=== PATIENT | female | born 1985 | race Caucasian/White ===

== ENCOUNTER 2020-04-01 08:00 | Inpatient (IN) | payer OTHER ==
[2020-04-02] MEDS ORDERED: CITRIC ACID/SODIUM CITRATE 30 ML UNIT-DOSE CUP PO ONE (14:32)
[2020-04-02] MEDS ORDERED: ELECTROLYTE-148 SOLN 500 ML IV ONE (14:32)
--- NOTE | 2020-04-02 14:37 | HP ---
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: Alzheimer's, CVA, Dementia, Migraine, Multiple Sclerosis, Peripheral Neuropathy, Parkinson's, Seizure, Syncope, TIA, Vertigo, Other Cardiovascular: No: AFIB, Aneurysm, Aortic Insufficiency, Aortic Stenosis, CAD, CHF, Deep Vein Thrombosis, HTN, Hyperlipdemia, CT, Mitral Insufficiency, Mitral Stenosis, Murmur, Pulmonary Hypertension, Other Pulmonary: No: Asthma, Bronchitis, Cancer, COPD, O2 Dependent, Pneumonia, Previously Intubated, Pulmonary Embolus, Pulmonary Fibrosis, Sleep Apnea, Other Gastrointestinal: No: Ascites, Cancer, Constipation, Crohn's Disease, Diverticulitis, Diverticulosis, Esophageal Varices, Gastritis, GERD, GI Bleed, Hemorrhoids, Hiatal Hernia, Inflamatory Bowel Disease, Irritable Bowel Disease, Pancreatitis, Peptic Ulcer Disease, Ulcerative Colitis, Other Hepatobiliary: No: Cirrhosis, Cholelithiasis, Cholecystitis, Choledocholithiasis, Hepatitis A, Hepatitis B, Hepatitis C, Other Renal/: No: Renal Failure, Renal Inusuff, BPH, Cancer, Hematuria, Hemodialysis, Neurogenic Bladder, Renal Calculi, UTI, Other Reproductive: No: Ectopic , Endometriosis, Fibroids, PID, Polycystic Ovary Syndrome, Postmenopausal, Other Heme/Onc: No: Anemia, B12 Deficiency, Bleeding Disorder, Cancer, Current Chemotherapy, Current Radiation Therapy, Hemochromatosis, Hypercoaguable State, Myeloproliferative Synd, Sickle Cell Disease, Sickle Cell Trait, Thrombocytopenia, Other Infectious Disease: No: AIDS, C-Diff, Herpes Zoster, HIV, MRSA, STD's, Tuberculosis, VREF, Other Psych: No: Addictions, Anxiety, Bipolar, Depression, Panic, Psychosis, Schizophrenia, Other Musculoskeletal: No: Bursitis, Chronic low back pain, Hemiparesis, Hemiplegia, Osteoarthritis, Paraplegia, Other Rheumatology: No: Fibromyalgia, Gout, Lupus, Rheumatoid Arthritis, Sarcoidosis, Vasculitis, Other ENT: No: Allergic Rhinitis, Sinusitis, Other Endocrine: No: [place]'s Disease, [place]'s Disease, Diabetes Insipidus, Diabetes Mellitus, Hyperparathyroidism, Hyperthyroidism, Hypothyroidism, Osteopenia, SIADH, Other Dermatology: No: Basal Cell, Cellulitis, Eczema, Melanoma, Psoriasis, Squamous Cell, Other - Past Surgical History Past Surgical History: Yes: Hx Myomectomy: No Hx Transabdominal Cerclage: No - Advance Directives Advance Directives: Yes: Living Will - Smoking History Smoking history: Never smoked - Alcohol/Substance Use Hx Alcohol Use: No History of Substance Use: reports: None - Social History Usual Living Arrangement: Yes: With Significant Other Do you think of yourself as: Straight/Heterosexual ADL: Independent History of Recent Travel: No Family Medical History Family History: Denies Review of Systems - Review of Systems Constitutional: reports: No Symptoms Eyes: reports: No Symptoms HENT: reports: No Symptoms Neck: reports: No Symptoms Cardiovascular: reports: No Symptoms Respiratory: reports: No Symptoms Gastrointestinal: reports: No Symptoms Genitourinary: reports: No Symptoms Breasts: reports: No Symptoms Reported Musculoskeletal: reports: No Symptoms Integumentary: reports: No Symptoms Neurological: reports: No Symptoms Endocrine: reports: No Symptoms Hematology/Lymphatic: reports: No Symptoms Psychiatric: reports: No Symptoms Physical Exam - Maternity Constitutional: Yes: Well Nourished, No Distress, Calm Eyes: Yes: WNL, Conjunctiva Clear, EOM Intact HENT: Yes: WNL, Atraumatic, Normocephalic Neck: Yes: WNL, Supple, Trachea Midline Cardiovascular: Yes: WNL, Regular Rate and Rhythm Lungs: Clear to auscultation Breast(s): Yes: WNL - Abdominal Exam/OB Number of Fetuses: Single Presentation: Vertex Contractions: Yes Regularity: Irregular Intensity: Mild Monitor Mode: External Heart Rate Location: [facility] Category: I Accelerations: Uniform Decelerations: None - Vaginal Exam/OB Vaginal Bleeding: No Speculum Exam: No Dilatation (cm): 1 Effacement (%): 50 Presentation: Vertex/Position Station: -2 - Physical Exam Musculoskeletal: Yes: WNL Extremities: Yes: WNL Edema: Yes Edema: LUE: 1+, RUE: 1+, LLE: 1+, RLE: 1+ Integumentary: Yes: WNL Deep Tendon Reflex Grade: Normal +2 ...Motor Strength: WNL Psychiatric: Yes: WNL, Alert, Oriented Hemorrhage Risk Assessment - Risk Factors Medium Risk Factors: Yes: Prior , uterine surgery,or multiple laparotomies High Risk Factors: Yes: None Risk Score: 1 Risk Level: Medium Risk Assessment/Plan for rpeeat lt c s
[2020-04-02] MEDS ORDERED: morphine SULFATE/PF 0.5 MG/ML (2cc Syringe - QUVA) ONE (14:54)
[2020-04-02] MEDS ORDERED: ceFAZolin SODIUM 1 GM VIAL ONE (14:55)
[2020-04-02] MEDS ORDERED: KETOROLAC TROMETHAMINE 30 MG/1 ML VIAL ONE (14:55)
[2020-04-02] MEDS ORDERED: OXYTOCIN 10 UNITS/ML VIAL ONE (14:55)
[2020-04-02] MEDS ORDERED: ELECTROLYTE-148 SOLN 1,000 ML IV SCH (15:01)
[2020-04-02 15:55] VITALS: BMI 33.6
[2020-04-02] MEDS ORDERED: OXYTOCIN 20 UNITS in 0.9% NS 20 UNIT/1,000 ML INFUS.BAG IV ONE (16:35)
[2020-04-02] MEDS ORDERED: ONDANSETRON 4 MG/2 ML VIAL IVPUSH PRN (16:56)
[2020-04-02] MEDS ORDERED: ACETAMINOPHEN 1000 MG/100 ML VIAL (NON FORMULARY) IVPB ONE (16:57)
[2020-04-02] MEDS ORDERED: METHYLERGONOVINE MALEATE 0.2 MG/1 ML AMP IM PRN (17:34)
[2020-04-02] MEDS ORDERED: oxyCODONE HCL 5 MG TABLET PO PRN ×2 (17:34)
[2020-04-02] MEDS ORDERED: IBUPROFEN 800 MG/8 ML IJ IVPB PRN (17:34)
--- NOTE | 2020-04-02 17:34 | OP ---
Operative Note - Note: Operative Date: 04/02/20 Pre-Operative Diagnosis: repeat lt c s Operation: repeat lt c s Findings: no adhesion Post-Operative Diagnosis: Same as Pre-op Surgeon: Juancho Ponce Occupational Ther: Joseph Gruber Anesthesiologist/COSMETIC COUNSELOR: Jorden Roque Anesthesia: Spinal Estimated Blood Loss (mls): 600 Operative Report Dictated: Yes
[2020-04-02] MEDS ORDERED: OXYTOCIN 20 UNITS in 0.9% NS 20 UNIT/1,000 ML INFUS.BAG IV SCH (17:45)
--- NOTE | 2020-04-02 18:02 | OP ---
DATE OF OPERATION: 04/02/2020 PREOPERATIVE DIAGNOSIS: Repeat low transverse section. POSTOPERATIVE DIAGNOSIS: Repeat low transverse section. Cord around the neck x1. PROCEDURE: Repeat low transverse section. SURGEON: Juancho Ponce MD. ELECTRIC SYSTEM OPERATOR: KAREN Laureano. ANESTHESIA: Spinal ANESTHESIOLOGIST: Wesley Roque MD. INDICATION: A 34-year-old female patient with a history of low transverse section 39 weeks and 3 days , chronic hepatitis B carrier for all her life. Patient is being seen by GI doctor and I think confirmed to be positive in January; however, her viral load is very low, so that is why probably are repeated tests for hepatitis B surface antigen was negative. However, she was positive in 2014 too, and in January of this year, her GI doctor, Dr. Morales tested her and has been positive, and she is not on any medication for treatment. So again, patient has been educated. Patient knows that baby needed to have a hepatitis B vaccine and immunoglobulin. So patient understood, so patient taken to OR for repeat low transverse section. DESCRIPTION OF PROCEDURE: Patient was placed on operating table in supine position after spinal anesthesia was obtained. The patient's abdomen and pelvis were prepped and draped in the usual sterile manner. Pfannenstiel incision was made. The incision was made through skin, subcutaneous tissue, until the fascia was nicked in the midline. The fascia was extended bilaterally. Intraperitoneal cavity was entered, bladder flap was created. Low transverse section of uterus was entered, baby delivered from RACHAEL position. Cord around the neck x1. Baby was handed over to the president commercial [employer] after umbilical cord was doubly clamped and cut. Placenta was removed. Uterus was closed in single layer, first interlocking Vicryl suture, good hemostasis, and both gutters clean. Both ovaries, fallopian tubes, uterus were within normal limits, no complications. Tolerated procedure well. Draining clear urine. Blood loss about 600 mL. Peritoneum was closed. Fascia was closed. Skin was closed. Transferred to recovery room in stable condition draining clear urine. MD SHRUTHI ELAINE/[id number]
[2020-04-02] MEDS ORDERED: ACETAMINOPHEN INJECTION 100 ML IVPB ONE (18:24)
[2020-04-02] MEDS ORDERED: SENNOSIDES/DOCUSATE COMBO (SENNA PLUS) TABLET (UD) PO PRN (22:00)
--- NOTE | 2020-04-03 08:11 | PN ---
Progress Note (short form) - Note Progress Note: Anesthesia Post op/Pain Pt seen and examined S:Alert and awake, mild discomfort O: Vital Signs Temperature 98.2 F 04/03/20 02:00 Pulse Rate 75 04/03/20 02:00 Respiratory Rate 20 04/03/20 06:07 Blood Pressure 102/63 04/03/20 02:00 O2 Sat by Pulse Oximetry (%) 98 04/03/20 02:00 A/P: s/p c section Doing well post op PO pain meds as needed Continue current care Celso Cole MD
[2020-04-03 09:56] LABS: BASO % 0.3 % (0-2.0); EOS % 0.9 % (0-4.5); HEMATOCRIT 29.4 % (32.4-45.2); HEMOGLOBIN 9.9 GM/dL (10.7-15.3); LYMPH % 10.1 % (8-40); MCH 29.5 pg (25.7-33.7); MCHC 33.6 g/dl (32.0-36.0); MEAN CELL VOLUME 87.8 fl (80-96); NEUT % 82.7 % (42.8-82.8); PLATELET COUNT 210 K/MM3 (134-434); RBC 3.34 M/mm3 (3.60-5.2); RDW 13.3 % (11.6-15.6); WHITE BLOOD COUNT 10.6 K/mm3 (4.0-10.0)
[2020-04-03] MEDS ORDERED: DIPHTH,PERTUSS(ACELL),TET 0.5 ML DISP.SYRIN IM ONE (10:00)
[2020-04-03] MEDS: PRENATAL VITAMINS W/ FOLIC ACID TABLET (FP) PO SCH (10:17)
--- NOTE | 2020-04-03 15:23 | PN ---
Post Progress Note Post Day: 1 Type of Delivery: Repeat C/S Vital Signs: Vital Signs Temperature 97.8 F 04/03/20 09:05 Pulse Rate 86 04/03/20 09:05 Respiratory Rate 20 04/03/20 15:00 Blood Pressure 112/58 L 04/03/20 09:05 O2 Sat by Pulse Oximetry (%) 97 04/03/20 09:05 Breast Exam: Yes: Soft Uterus: Yes: Fundus Firm, Fundus below umbilicus Incision: Yes: Dressing dry and intact, Sutures intact Abdomen/GI: Yes: Abdomen soft, Passing flatus, Tolerating PO Lochia: Yes: Serosa Lochia, amount: Small Extremities: Yes: Calves non-tender Perineum: Yes: Intact Activity: Ambulating (doing well, dc pt home tomorrow ) - Labs Labs: CBC WBC 10.6 K/mm3 (4.0-10.0) H 04/03/20 08:20 RBC 3.34 M/mm3 (3.60-5.2) L 04/03/20 08:20 Hgb 9.9 GM/dL (10.7-15.3) L 04/03/20 08:20 Hct 29.4 % (32.4-45.2) L D 04/03/20 08:20 MCV 87.8 fl (80-96) 04/03/20 08:20 MCH 29.5 pg (25.7-33.7) 04/03/20 08:20 MCHC 33.6 g/dl (32.0-36.0) 04/03/20 08:20 RDW 13.3 % (11.6-15.6) 04/03/20 08:20 Plt Count 210 K/MM3 (134-434) 04/03/20 08:20 MPV 9.0 fl (7.5-11.1) 04/03/20 08:20 Absolute Neuts (auto) 8.8 K/mm3 (1.5-8.0) H 04/03/20 08:20 Neutrophils % 82.7 % (42.8-82.8) 04/03/20 08:20 Lymphocytes % 10.1 % (8-40) D 04/03/20 08:20 Monocytes % 6.0 % (3.8-10.2) 04/03/20 08:20 Eosinophils % 0.9 % (0-4.5) 04/03/20 08:20 Basophils % 0.3 % (0-2.0) 04/03/20 08:20 Nucleated RBC % 0 % (0-0) 04/03/20 08:20
--- NOTE | 2020-04-03 15:27 | DS ---
Physical Exam-HISTOLOGY SPECIALIST Vital Signs: Vital Signs Temperature 97.8 F 04/03/20 09:05 Pulse Rate 86 04/03/20 09:05 Respiratory Rate 20 04/03/20 15:00 Blood Pressure 112/58 L 04/03/20 09:05 O2 Sat by Pulse Oximetry (%) 97 04/03/20 09:05 Constitutional: Yes: Well Nourished, No Distress, Calm Eyes: Yes: WNL, Conjunctiva Clear, EOM Intact HENT: Yes: WNL, Atraumatic, Normocephalic Neck: Yes: WNL, Supple, Trachea Midline Cardiovascular: Yes: WNL, Regular Rate and Rhythm Respiratory: Yes: WNL, Regular, CTA Bilaterally Gastrointestinal: Yes: WNL, Normal Bowel Sounds, Soft ...Rectal Exam: Yes: WNL Renal/: Yes: WNL Pelvis: Yes: WNL External Genitalia: Yes: Normal Internal Exam Deferred: Yes Vaginal Exam: Yes: Normal Cervix: Yes: Normal Uterus: Yes: Normal Adnexa: Normal: Bilateral ....Post : Yes: Uterus firm, Uterus non-tender Breast(s): Yes: WNL Musculoskeletal: Yes: WNL Extremities: Yes: WNL Edema: Yes Edema: LUE: 1+, RUE: 1+, LLE: 1+, RLE: 1+ Integumentary: Yes: WNL Wound/Incision: Yes: Clean/Dry, Well Approximated Neurological: Yes: WNL, Alert, Oriented ...Motor Strength: WNL Psychiatric: Yes: WNL, Alert, Oriented Labs: CBC, BMP 04/03/20 08:20 Delivery - Delivery Section: Repeat Type of Anesthesia: Spinal Episiotomy/Laceration: None EBL (cc): 600 Delivery, Single - Stages of Labor Date of Delivery: 04/02/20 Time of Delivery: 15:58 Time Placenta Delivered: 15:59 - Condition of Infant Olive Pitter/Evaluator Present: Yes Name: Karely Ram Gender: Female Weight: 3.09 kg Position: Left, OA Total Hours ROM (Hrs/Mins): 2mins - 1 Minute Total Score: 9 5 Minutes Total Score: 9 - [place] Feeding Plan Initial Plan: Exclusive throughout hospitalization Discharge Summary Problems reviewed: Yes Reason For Visit: Procedures: Principal: repeat lt cs Other Procedures: none Hospital Course: uneventful Health Concerns: none Condition: Good - Instructions Diet, Activity, Other Instructions: Physical activity Resume your normal everyday activity as tolerated no heavy lifting or exercise until seen by your surgeon. You may walk unlimited chad of and climb stairs. You may resume driving the car when you feel safe and comfortable behind the wheel. No sexual activity as instructed. Wound care If you have a bandage, leave it on, and keep dry for 48-72 hours. After that brianne e discard the outer bandage. If they are tapes on the skin under the out of bandage leave them in place. They will peel off in the next 7 to 10 days. Do Not Peel them off. You may shower the day after surgery. If there are tapes present on the skin, you may shower over them. Diet There are no dietary restrictions. Eat healthy, high-fiber foods. Drink 6 to 8 glasses of liquid each day. This will assist in keeping your bowels are regular. Pain management You may take Tylenol or acetaminophen or Ibuprofen (for example, Motrin, Advil etc.) from my pain prescription medication is ordered should be taken as prescribed for moderate to severe pain. Call MD for any of the following: call dr aguirre for 2 weeks appointment Severe pain not relieved by medication Fever of 101 or higher Excessive bleeding or drainage on dressing Inability to urinate Disposition: HOME - Home Medications Comprehensive Discharge Medication List: Ambulatory Orders Pnv No.95/Ferrous Fum/Folic AC [ Vitamin Tablet] 1 each PO DAILY 04/02/20 Ibuprofen 600 mg PO Q6H PRN #30 tablet 04/03/20 Prescription Drug Monitoring Program (I-STOP) results: I-STOP reviewed and no issues identified
[2020-04-03 15:52] VITALS: TEMP 98.2
[2020-04-03] MEDS: ACETAMINOPHEN 325 MG TABLET (FP) PO PRN ×2 (17:06→21:28)
[2020-04-03] MEDS: SIMETHICONE 80 MG TAB.CHEW (FP) PO PRN ×2 (17:07→21:29)
[2020-04-03] MEDS: IBUPROFEN 600 MG TABLET (FP) PO PRN ×2 (17:07→21:28)
[2020-04-03] MEDS ORDERED: BISACODYL 10 MG SUPP.RECT RC PRN (17:34)
[2020-04-03 20:46] VITALS: BP 98/66
[2020-04-04] MEDS: IBUPROFEN 600 MG TABLET (FP) PO PRN ×2 (07:50→14:02)
[2020-04-04] MEDS: ACETAMINOPHEN 325 MG TABLET (FP) PO PRN ×2 (07:51→14:01)
[2020-04-04] MEDS: SIMETHICONE 80 MG TAB.CHEW (FP) PO PRN (07:51)
[2020-04-04 09:29] VITALS: PULSE 90
[2020-04-04] MEDS: PRENATAL VITAMINS W/ FOLIC ACID TABLET (FP) PO SCH (10:41)
[2020-04-06 05:07] LABS: HBsAG CONFIRMATION Positive (.)
--- NOTE | 2020-04-07 14:22 | PATH ---
Surgical Pathology Report Patient Name: ARIEL RESTREPO Med. Rec. #: [id number] /Age/Gender: 1985 (Age: 34) / F Account: [id number] Location: [facility] OBS/MIS DIRECTOR Taken: 04/02/2020 Received: 04/05/2020 Reported: 04/07/2020 Physicians: Juancho Ponce MD Specimen(s) Received PLACENTA Clinical History , 39.4 week, history of hepatitis B surface antigen positive-2014, non-reactive 10/01/19, redrawn 04/02/20 Previous x1 2014 Final Diagnosis PLACENTA, SECTION: 313 G THIRD TRIMESTER PLACENTA WITH TRIVASCULAR UMBILICAL CORD AND UNREMARKABLE PLACENTAL MEMBRANES. Electronically Signed [place] Castellano M.D. Gross Description The specimen is received fresh labeled placenta and is a 313 gram, 17.0 x 13.5 x 2.7 cm. placenta with attached membranes and umbilical cord. The attached membranes are whitten, translucent with focal opacities and insert marginally. The umbilical cord measures 26 cm. in length and averages 1 cm. in diameter. The cord inserts eccentrically, 3 cm. to the nearest margin. No true knots or strictures are identified. Cut surface of the umbilical cord reveals 3 vessels. The surface is ames-blue with minimal fibrin deposition and appropriate caliber vessels. The maternal surface is red-brown with focal defects. Sectioning reveals red-brown, spongy parenchyma. No lesions are identified. Physician Office Specialist sections are submitted in three cassettes as follows: 1- membrane rolls and umbilical cord; 2-3- full thickness sections of placenta. /04/06/2020 [facility]/04/06/2020
== END 2020-04-04 14:25 | disposition home or self-care (01) | DRG 540 ==
LOC: JLDR 04-02 13:31 → J3W 04-02 20:00
PROVIDERS: ADMIT Obstetrics & Gynecology; ATTEND Obstetrics & Gynecology
PROC: 10D00Z1 Extraction of Products of Conception, Low, Open Approach (ICD-10-PCS; principal; 2020-04-02)
DX: O82 Encounter for cesarean delivery without indication (principal); O34.211 Maternal care for low transverse scar from previous cesarean delivery; O69.81X0 Labor and delivery complicated by cord around neck, without compression, not applicable or unspecified; O98.52 Other viral diseases complicating childbirth; B18.1 Chronic viral hepatitis B without delta-agent; Z37.0 Single live birth; Z3A.39 39 weeks gestation of pregnancy
CPT/HCPCS: 36415; 85025; 87340; 87389; 88307-TC; 90715; J0131